=== PATIENT | male | born 2005 | race Caucasian/White ===

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

== ENCOUNTER 2023-11-03 23:10 | Emergency (ER) | payer OTHER ==
[~2023-11-03] VITALS: Ht 177.8 cm; Wt 145.1 kg
[2023-11-03] MEDS ORDERED: diphenhydrAMINE hydrochloride 25 MG CAP PO ONE (23:30)
[2023-11-03] MEDS ORDERED: TRIAMCINOLONE ACETONIDE 40 MG/ML VIAL IM ONE (23:30)
[2023-11-03] MEDS ORDERED: ALLERGY RELIEF10 M2 PO (23:36)
== END 2023-11-04 00:16 | disposition home or self-care (01) ==
LOC: ED 23:10
DX: L25.9 Unspecified contact dermatitis, unspecified cause (principal); Z79.2 Long term (current) use of antibiotics; Z79.899 Other long term (current) drug therapy

== ENCOUNTER 2024-11-13 21:02 | Emergency (ER) | payer OTHER ==
[~2024-11-13] VITALS: Ht 185.4 cm; Wt 154.2 kg
[~2024-11-13 21:02] MED LIST changes: +ALLERGY RELIEF10 M2 PO
[2024-11-13] MEDS ORDERED: Bacitracin Zinc 14 GM TUBE T ONE ×2 (22:00→23:15)
[2024-11-13] MEDS ORDERED: Ondansetron Hydrochloride 4 MG TAB SL ONE (23:15)
[2024-11-13] MEDS ORDERED: Acetaminophen/Hydrocodone 5 MG/325 MG TABLET PO ONE (23:15)
[2024-11-13] MEDS ORDERED: NAPROSYN500 MG PO (23:17)
== END 2024-11-13 23:35 | disposition home or self-care (01) ==
LOC: ED 21:02
DX: S80.211A Abrasion, right knee, initial encounter (principal); Z79.899 Other long term (current) drug therapy; V28.49XA Other motorcycle driver injured in noncollision transport accident in traffic accident, initial encounter; Y93.89 Activity, other specified; Y92.488 Other paved roadways as the place of occurrence of the external cause; Y99.8 Other external cause status

== ENCOUNTER 2025-04-05 12:10 | Emergency (ER) | payer SELFPAY ==
[~2025-04-05] VITALS: Ht 185.4 cm; Wt 151.5 kg
[~2025-04-05 12:10] MED LIST changes: +NAPROSYN500 MG PO
[2025-04-05] MEDS ORDERED: SODIUM CHLORIDE 0.9% 500 ML IV ONE (12:25)
[2025-04-05] MEDS ORDERED: Ondansetron Hydrochloride 4 MG/2 ML VIAL IV ONE (12:30)
[2025-04-05 12:46] LABS: BASO # 0.1 10*3/uL (0.0-0.1); BASO % 0.7 % (0.0-1.0); EOS # 0.1 10*3/uL (0.0-0.4); EOS % 0.7 % (1.0-4.0); MEAN CELL VOLUME 88.1 fl (80.0-94.0); MEAN CORPUSCULAR HGB 28.9 pg (27.0-31.0); MEAN PLATELET VOLUME 10.1 fl (9.6-12.3); MONO # 0.9 10*3/uL (0.1-1.0); MONO % 9.7 % (3.0-9.0); NEUT # 6.8 10*3/uL (2.3-7.9); NEUT % 72.1 % (47.0-73.0); NUCLEATED RED BLOOD CELL 0.0 % (0.0-0.0); NUCLEATED RED BLOOD CELL 0.0 10*3/uL (0.0-0.0); PLATELET COUNT AUTOMATED 344 10*3/uL (130-400); RED CELL DISTRI WIDTH 13.2 % (0-14.5)
[2025-04-05 13:06] LABS: BUN 14 mg/dl (9-23); SGPT/ALT 42 U/L (5-49)
[2025-04-05] MEDS ORDERED: Ondansetron4 MG PO (13:18)
== END 2025-04-05 16:33 | disposition home or self-care (01) ==
LOC: ED 12:10
PROVIDERS: Emergency Medicine
DX: A08.4 Viral intestinal infection, unspecified (principal); R11.2 Nausea with vomiting, unspecified